=== PATIENT | female | born 1990 | race Caucasian/White ===

== ENCOUNTER 2016-08-03 09:07 | Emergency (ER) | payer OTHER ==
[~2016-08-03] VITALS: Ht 167.6 cm; Wt 51.3 kg
[~2016-08-03 09:07] MED LIST: AMOX875 PO; IBUP800 PO; ONDA1TAB16 PO; SERO100T PO; VIIB40TA PO
[2016-08-03 09:12] VITALS: BP 116/78; PULSE 140; RESP 16; TEMP 98.2; O2SAT 97
[2016-08-03] MEDS ORDERED: SERO200T PO (09:19)
[2016-08-03] MEDS ORDERED: VIIB40TA PO (09:19)
[2016-08-03] MEDS ORDERED: BACT800T5 PO (09:36)
--- NOTE | 2016-08-03 09:37 | PD ---
HPI Chief Complaint: Laceration/Skin Injury Time Seen by Provider: 09:19 Travel History International Travel<30 days: No Contact w/Intl Traveler<30days: No Traveled to known affect area: No History of Present Illness HPI 26-year-old female complains of left forearm and left hand laceration. Patient states that she put her left arm through a glass window 5 days ago. Patient states that she has persistent burning pain to the area since then. Patient's worry about infection to the area. Patient's up-to-date with TD booster. PFSH Past Medical History Autoimmune Disease: No Bipolar Disorder: Yes Anxiety: Yes Depression: Yes Cancer: No Cardiovascular Problems: Yes (TACHYCARDIA) Diabetes: No Diminished Hearing: No GERD: Yes Glaucoma: No Genitourinary: No Headaches: Yes Hepatitis: No Hiatal Hernia: No Hypertension: No Musculoskeletal: Yes Neurologic: Yes Psychiatric: Yes Respiratory: No Immunizations Current: Yes Seizures: No Thyroid Disease: No Ulcer: No ?: Not LMP: 07/26/16 : 1 Para: 1 Past Surgical History Pacemaker: No Other Surgery: No Social History Alcohol Use: Yes (SOCIALLY) Tobacco Use: Yes (2-3 CIGS/DAY) Substance Use: No Allergies-Medications (Allergen,Severity, Reaction): Coded Allergies: Onion (Verified Allergy, Severe, THROAT SWELLS, 08/03/16) Reported Meds & Prescriptions Reported Meds & Active Scripts Active Reported Seroquel (Quetiapine Fumarate) 200 Mg Tab 200 Mg PO HS Viibryd (Vilazodone) 40 Mg Tab 40 Mg PO HS Review of Systems General / Constitutional: No: Fever Eyes: No: Visual changes HENT: No: Headaches Cardiovascular: No: Chest Pain or Discomfort Respiratory: No: Shortness of Breath Gastrointestinal: No: Abdominal Pain Genitourinary: No: Dysuria Musculoskeletal: No: Pain Skin: No Rash Neurologic: No: Weakness Psychiatric: No: Depression Endocrine: No: Polydipsia Hematologic/Lymphatic: No: Easy Bruising Physical Exam Narrative GENERAL: Well-nourished, well-developed patient. SKIN: Focused skin assessment warm/dry. HEAD: Normocephalic. EYES: No scleral icterus. No injection or drainage. NECK: Supple, trachea midline. No JVD or lymphadenopathy. CARDIOVASCULAR: Regular rate and rhythm without murmurs, gallops, or rubs. RESPIRATORY: Breath sounds equal bilaterally. No accessory muscle use. GASTROINTESTINAL: Abdomen soft, non-tender, nondistended. MUSCULOSKELETAL: No cyanosis, or edema. BACK: Nontender without obvious deformity. No CVA tenderness. Patient has healing evulsion lacerations to left forearm distally and lateral aspect of the left hand. No redness no heat noted discharge. No swelling noted. Data Data Last Documented VS Vital Signs Date Time Temp Pulse Resp B/P Pulse Ox O2 Delivery O2 Flow Rate FiO2 08/03/16 09:12 98.2 140 16 116/78 97 MDM Medical Decision Making Medical Screen Exam Complete: Yes Emergency Medical Condition: Yes Differential Diagnosis Differential diagnosis including wound healing, wound infection. Narrative Course 26-year-old female with healing evulsion laceration left forearm and left hand. Polysporin ointment with dressing. Diagnosis Primary Impression: Lacerations of multiple sites of left arm Qualified Code: S41.112A - Lacerations of multiple sites of left arm, initial encounter Patient Instructions: General Instructions Additional Instructions: Bactrim DS as directed. Wound care daily. Follow-up with personal physician. Return if increasing redness swelling. Med/Other Pt SpecificInfo: Prescription(s) given Scripts Sulfamethoxazole-Trimethoprim (Bactrim DS)800-160 Mg Tab1 Tab PO BID #14 TAB Prov:Ruperto Darnell MD 08/03/16 Disposition: 01 DISCHARGE HOME Condition: Stable Ruperto Darnell MD Aug 03, 2016 09:36
== END 2016-08-03 09:45 | disposition home or self-care (01) ==
LOC: PHEFT 09:07
DX: S61.412A Laceration without foreign body of left hand, initial encounter (principal); S51.812A Laceration without foreign body of left forearm, initial encounter; W25.XXXA Contact with sharp glass, initial encounter
CPT/HCPCS: 99282

== ENCOUNTER 2017-01-01 17:38 | Emergency (ER) | payer OTHER ==
[~2017-01-01] VITALS: Ht 165.1 cm; Wt 55.0 kg
[~2017-01-01 17:38] MED LIST changes: -AMOX875 PO; +BACT800T5 PO; -IBUP800 PO; -ONDA1TAB16 PO; -SERO100T PO; +SERO200T PO
[2017-01-01 17:40] VITALS: BP 110/74; PULSE 94; RESP 17; TEMP 98; O2SAT 98
--- NOTE | 2017-01-01 17:49 | PD ---
Physical Exam Date Seen by Provider: Jan 01, 2017 Time Seen by Provider: 17:47 Narrative 26 YOWF C/O FEVER SWOLLEN GLANDS WITH SORE THROAT.SICK NOW FOR 1 WEEK PAIN 11/03 VS NOTED WAITING FOR BED PLACEMENT Data Data Last Documented VS Vital Signs Date Time Temp Pulse Resp B/P (MAP) Pulse Ox O2 Delivery O2 Flow Rate FiO2 01/01/17 17:40 98.0 94 17 110/74 (86) 98 Room Air MDM Medical Record Reviewed: No Supervised Visit with EDY: Yes Hua Adorno Jan 01, 2017 17:49
--- NOTE | 2017-01-01 17:58 | PD ---
HPI Chief Complaint: ENT Complaint Time Seen by Provider: 17:57 Travel History International Travel<30 days: No Contact w/Intl Traveler<30days: No Traveled to known affect area: No History of Present Illness HPI 26-year-old female presents to emergency department complaining of sore throat and swollen glands times one week. Denies fever, vomiting. Says she has been feeling chills. Denies lump and throat, difficulty swallowing, unusual drooling. Reports painful swallowing. Denies nasal congestion, ear pain, cough. Denies headache, vomiting, abdominal pain. Has been taking over-the- counter medications for symptom management. Symptoms are mild in severity. Has no other medical complaints. Allergies to onions. No other modifying factors or associated signs and symptoms. PFSH Past Medical History Autoimmune Disease: No Bipolar Disorder: Yes Anxiety: Yes Depression: Yes Cancer: No Cardiovascular Problems: Yes (TACHYCARDIA) Diabetes: No Diminished Hearing: No GERD: Yes Glaucoma: No Genitourinary: No Headaches: Yes Hepatitis: No Hiatal Hernia: No Hypertension: No Musculoskeletal: Yes Neurologic: Yes Psychiatric: Yes Respiratory: No Immunizations Current: Yes Seizures: No Thyroid Disease: No Ulcer: No ?: Not LMP: END OF LAST MONTH : 1 Para: 1 Past Surgical History Pacemaker: No Other Surgery: No Social History Alcohol Use: Yes (SOCIALLY) Tobacco Use: Yes (2-3 CIGS/DAY) Substance Use: No Allergies-Medications (Allergen,Severity, Reaction): Coded Allergies: onion (Verified Allergy, Severe, THROAT SWELLS, 01/01/17) Reported Meds & Prescriptions Reported Meds & Active Scripts Active Amoxicillin 500 Mg Cap 500 Mg PO BID 10 Days Ibuprofen 800 Mg Tab 800 Mg PO Q6HR PRN Magic Mouthwash Pediatric/Adult Liq (Lidocaine/Diphenhydr/Alum/Mg/Simeth) 60 Ml Susp 5 Ml SWISH-SWAL Q3HR PRN Each 5mL contains: Diphenydramine 4.5mg, Viscous Lidocaine 2% 10mg, Maalox Advanced Regular Strength 2.7ml Bactrim DS (Sulfamethoxazole-Trimethoprim) 800-160 Mg Tab 1 Tab PO BID Reported Seroquel (Quetiapine Fumarate) 200 Mg Tab 200 Mg PO HS Viibryd (Vilazodone) 40 Mg Tab 40 Mg PO HS Review of Systems Except as stated in HPI: all other systems reviewed are Neg Physical Exam Narrative GENERAL: Well-nourished, well-developed female patient, in no acute distress; afebrile, nontoxic-appearing SKIN: Warm and dry. No rash. HEAD: Atraumatic. Normocephalic. EYES: Pupils equal and round. No scleral icterus. No injection or drainage. ENT: Mucosa pink and moist. No erythema or exudates. No uvular edema. No uvular , palatal, or tonsillar deviation. Airway patent. EARS: Bilateral pinnae and external canals appear within normal limits. Bilateral tympanic membranes without erythema, dullness or perforation. NECK: Trachea midline. No lymphadenopathy. CARDIOVASCULAR: Regular rate. RESPIRATORY: No accessory muscle use. GASTROINTESTINAL: Flat. MUSCULOSKELETAL: No obvious deformities. No clubbing. No cyanosis. No edema. NEUROLOGICAL: Awake and alert. Oriented 3. No obvious cranial nerve deficits. Motor grossly within normal limits. Normal speech. Moves all extremities. 5/5 strength to all extremities. PSYCHIATRIC: Appropriate mood and affect; insight and judgment normal. Data Data Last Documented VS Vital Signs Date Time Temp Pulse Resp B/P (MAP) Pulse Ox O2 Delivery O2 Flow Rate FiO2 01/01/17 18:53 01/01/17 17:40 98.0 94 17 98 Room Air Orders Orders Group A Rapid Strep Screen (01/01/17 17:56) Strep Culture (Group A) (01/01/17 18:00) [facility] Medical Decision Making Medical Screen Exam Complete: Yes Emergency Medical Condition: Yes Medical Record Reviewed: Yes Differential Diagnosis Viral pharyngitis, strep pharyngitis, less likely peritonsillar abscess Narrative Course 26-year-old female with sore throat times one week. She is afebrile and nontoxic appearing. Denies fever, vomiting. Rapid strep ordered. Rapid strep positive. Amoxicillin, ibuprofen, Magic mouthwash prescribed for home. Instructed patient to follow up with primary care provider. Patient verbalizes understanding and agreement with treatment plan. Patient is medically cleared and stable for discharge. Discussed reasons to return to the emergency department. Patient agrees with treatment plan. The patients vital signs are stable and the patient is stable for outpatient follow-up and treatment. Patient discharged home, stable and in no acute distress. Diagnosis Primary Impression: Strep throat Referrals: Primary Care Physician Patient Instructions: General Instructions, Pharyngitis (ED) Departure Forms: Tests/Procedures, Work Release Enter return to work date: Jan 02, 2017 Additional Instructions: Throw away and change your toothbrush 24 hours after starting antibiotics Get plenty of sleep/rest Rest your voice Drink plenty of fluids to prevent dehydration Use warm saltwater gargles to soothe throat pain Use an air humidifier/turn off ceiling fans Use throat lozenges as needed for sore throat Use ibuprofen or acetaminophen as needed to relieve pain and fever Follow-up with your primary care provider within 2-4 days Return immediately to the emergency department with worsening of symptoms Med/Other Pt SpecificInfo: Prescription(s) given Scripts Amoxicillin (Amoxicillin) 500 Mg Cap 500 MG PO BID for Infection for 10 Days, CAP 0 Refills Prov: Brenda Peace 01/01/17 Ibuprofen (Ibuprofen) 800 Mg Tab 800 MG PO Q6HR Y for PAIN, #30 TAB 0 Refills Prov: Brenda Peace 01/01/17 Ezntjrexqohnypd-Lraqmwfyb-Slh-Alum-Simeth Liq (Magic Mouthwash Pediatric/Adult Liq) 60 Ml Susp 5 ML SWISH-SWAL Q3HR Y for SORE THROAT, #60 ML 0 Refills Each 5mL contains: Diphenydramine 4.5mg, Viscous Lidocaine 2% 10mg, Maalox Advanced Regular Strength 2.7ml Prov: Brenda Peace 01/01/17 Disposition: 01 DISCHARGE HOME Condition: Stable Brenda Peace Jan 01, 2017 17:58
[2017-01-01] MEDS ORDERED: IBUP800T23 PO (18:02)
[2017-01-01] MEDS ORDERED: MAGICPED SWISH-SWAL (18:02)
[2017-01-01] MEDS ORDERED: AMOX500C PO (18:52)
== END 2017-01-01 19:00 | disposition home or self-care (01) ==
LOC: NEPK 17:38
DX: J02.0 Streptococcal pharyngitis (principal); B95.0 Streptococcus, group A, as the cause of diseases classified elsewhere; F17.210 Nicotine dependence, cigarettes, uncomplicated
CPT/HCPCS: 87081; 87880; 99283

== ENCOUNTER 2017-02-17 09:25 | Emergency (ER) | payer OTHER ==
[~2017-02-17] VITALS: Ht 165.1 cm; Wt 55.0 kg
[~2017-02-17 09:25] MED LIST changes: +AMOX500C PO; +IBUP800T23 PO; +MAGICPED SWISH-SWAL
[2017-02-17 09:45] VITALS: BP 134/86; PULSE 109; RESP 19; TEMP 99; O2SAT 97
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
== END 2017-02-17 10:47 | disposition home or self-care (01) ==
LOC: NEPD 09:25
DX: F43.20 Adjustment disorder, unspecified (principal); F31.9 Bipolar disorder, unspecified; F41.9 Anxiety disorder, unspecified; K21.9 Gastro-esophageal reflux disease without esophagitis; F17.210 Nicotine dependence, cigarettes, uncomplicated; Z79.899 Other long term (current) drug therapy
CPT/HCPCS: 99283